=== PATIENT | female | born 1955 | race Caucasian/White ===

== ENCOUNTER 2022-01-14 08:16 | Emergency (ER) | payer OTHER ==
[2022-01-14 08:34] VITALS: TEMP 98; BMI 21.7
[2022-01-14] MEDS ORDERED: SODIUM CHLORIDE 1,000 ML IV ONE (08:34)
[2022-01-14] MEDS ORDERED: KETOROLAC TROMETHAMINE 15 MG/ML VIAL IVPUSH ONE (08:34)
[2022-01-14] MEDS ORDERED: KETOROLAC TROMETHAMINE 15 MG/ML VIAL ONE (08:45)
[2022-01-14 09:02] LABS: HEMATOCRIT 40.9 % (32.4-45.2); MCH 31.2 pg (25.7-33.7); MCHC 34.3 g/dl (32.0-36.0); MEAN PLT VOLUME 9.6 fl (7.5-11.1); PLATELET COUNT 208.1 10^3/uL (134-434); RBC 4.49 10^6/uL (3.60-5.2); RDW 14.1 % (11.6-15.6)
[2022-01-14 09:18] LABS: BILIRUBIN,TOTAL 0.7 mg/dl (0.2-1)
[2022-01-14] MEDS ORDERED: morphine CARPU-JECT 4 MG/1 ML DISP.SYRIN IVPUSH ONE (09:32)
[2022-01-14] MEDS ORDERED: morphine SULFATE 4 MG/ML VIAL ONE (09:35)
[2022-01-14 09:39] LABS: EPITHELIAL CELLS FEW /hpf
[2022-01-14 10:55] VITALS: BP 138/67; PULSE 78
[2022-01-14 13:06] LABS: PLATELET ESTIMATE ADEQUATE
== END 2022-01-14 10:56 | disposition home or self-care (01) ==
LOC: FER 08:16
PROC: 3E033GC Introduction of Other Therapeutic Substance into Peripheral Vein, Percutaneous Approach (ICD-10-PCS; principal; 2022-01-14)
DX: N20.0 Calculus of kidney (principal)
CPT/HCPCS: 36415; 74176-TC; 80053; 81003; 81015; 85025; 99285-25

== ENCOUNTER 2022-06-27 09:06 | Day surgery (SDC) | payer OTHER ==
[2022-06-22 10:42] VITALS: BMI 20.9
[2022-06-27] MEDS: CYCLOPENTOLATE 2% OPHTH SOLN 2 ML BOTTLE ONE ×3 (09:40→09:50)
[2022-06-27] MEDS: CIPROFLOXACIN 0.3% EYE DROPS 5 ML BOTTLE ONE ×3 (09:40→09:50)
[2022-06-27] MEDS ORDERED: LIDOCAINE 1% P/F 10 MG/ML VIAL ONE (09:40)
[2022-06-27] MEDS: TROPICAMIDE 1% OPHTH SOLN 15 ML BOTTLE ONE ×3 (09:40→09:50)
[2022-06-27] MEDS: PHENYLEPHRINE 2.5% OPHTH SOLN 15 ML BOTTLE ONE ×3 (09:40→09:50)
[2022-06-27] MEDS ORDERED: BSS (NA/CA/MG/K) BALANCED SALT SOLUTION OPHTH SOLN 15 ML BOTTLE ONE (09:41)
[2022-06-27] MEDS ORDERED: NEO/POLYMYX B SULF/DEXAMETH OPHTHALMIC 5ML BOTTLE ONE (09:41)
[2022-06-27] MEDS ORDERED: CARBACHOL 0.01% INTRA-OCULAR 1.5 ML VIAL ONE (09:41)
[2022-06-27] MEDS ORDERED: ACETYLCHOLINE 1:100 INTRA-OCUL 20 MG/2 ML KIT ONE (11:01)
[2022-06-27] MEDS ORDERED: MIDAZOLAM HCL 2 MG/2 ML SINGLE DOSE VIAL ONE (11:23)
[2022-06-27 12:13] VITALS: RESP 18; TEMP 97.8
[2022-06-27 12:28] VITALS: BP 133/73; PULSE 64
== END 2022-06-27 12:30 | disposition home or self-care (01) ==
LOC: FASU 09:06
PROVIDERS: ATTEND Ophthalmology
PROC: 08RJ3JZ Replacement of Right Lens with Synthetic Substitute, Percutaneous Approach (ICD-10-PCS; principal; 2022-06-27 11:28)
DX: H26.8 Other specified cataract (principal)
CPT/HCPCS: 66984; V2632